=== PATIENT | female | born 1970 | race Two or more races ===

== ENCOUNTER → 2017-09-14 | Outpatient (CLI) | payer OTHER ==
--- NOTE | 2017-09-14 17:01 | RAD ---
DATE: 04/14/2017: EXAM: DIGITAL SCREEN BILAT W/CAD HISTORY: Routine screening COMPARISON: 06/30/2015 This study was interpreted with the benefit of Computerized Aided Detection (CAD). The breast parenchyma is heterogeneously dense, which could reduce sensitivity of mammography. Breast parenchyma level C. FINDINGS: No new or enlarging breast densities are evident. Benign type calcifications are present in both breasts. No suspicious microcalcifications have developed. IMPRESSION: Stable mammograms without evidence of malignancy. BI-RADS CATEGORY: 2 BENIGN FINDING(S) RECOMMENDED FOLLOW-UP: 12M 12 MONTH FOLLOW-UP PQRS compliance statement: Patient information was entered into a reminder system with a target due date for the next mammogram. Mammography is a sensitive method for finding small breast cancers, but it does not detect them all and is not a substitute for careful clinical examination. A negative mammogram does not negate a clinically suspicious finding and should not result in delay in biopsying a clinically suspicious abnormality. "Our facility is accredited by the [employer] Mammography [employer]."
== END | disposition home or self-care (01) ==
LOC: MAMMO 14:59
PROVIDERS: ATTEND Nurse Practitioner
DX: Z12.31 Encounter for screening mammogram for malignant neoplasm of breast (principal)
CPT/HCPCS: G0202; 77067

== ENCOUNTER → 2018-11-22 | Outpatient (CLI) | payer OTHER ==
--- NOTE | 2018-11-22 13:43 | RAD ---
MR#: [id number] Date of Study: 11/22/2018 Ordering Physician: BENJAMIN ROBLERO, Referring Physician: DONNA ADDISON Tech: APPROVED REPORT Test Type: Exercise Stress Nurse/Tech: PAOLA Mckeon Test Indications: abn. ekg Cardiac History: See Electronic Medical Record Medications: See Electronic Medical Record Medical History: See Electronic Medical Record Resting ECG: SR, RT UPWARD AXIS, NO ACUTE ISCHEMIC CHANGES Resting Heart Rate: 51 bpm Resting Blood Pressure: 103/58mmHg Pretest Chest Pain: None Nurse/Tech Notes EX. 8 MIN STOPPED DUE TO FATIGUE Consent: The procedure was explained to the patient in lay terms. Informed consent was witnessed. Lucas eout was entered into [employer]. History and Stress Test performed by SARA Roberts, ARRT (R) (N) Stress Symptoms Fatigue POST EXERCISE Reason for Termination: Reached target heart rate, Fatigue Target HR: Yes Max HR: 170 bpm 117% of Maximum Predicted HR: 145 bpm Exercise duration: 8 min:sec, 3 Stage Exercise capacity: 10METs Max Blood Pressure: 153/61mmHg Blood Pressure response to exercise: Normal blood pressure response during stress. Chest Pain: No. ST Change: Yes. RESOLVED W/RECOVERY Deviation: 1.5 mm INTERPRETATION Stress EKG Conclusion: Baseline EKG is within normal limits - Sinus rhythm. Stress EKG: Markedly abnormal with [address] segment depression in the inferior leads with corres ponding V3-V5 ST segment depression. There is also 1 to 1.5 mm HOENY in aVR suggestive of possible mult ivessel disease. Conclusion 1. Normal baseline EKG 2. Average exercise capacity with 10 Mets achieved. Test terminated due to fatigue. 3. Achieved 97% APMHR. Normal BP response. 4. Markedly abnormal EKG with inferior/posterior ST segment changes suggestive of ischemia in the RCA territory. Cannot rule out multivessel disease due to 1 mm HONEY in aVR. 5. Abreu Treadmill Score: (-2) suggestive of moderate risk. 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 Signed by : Naeem Isaacs, Electronically Approved : 11/22/2018 13:41:58
== END | disposition home or self-care (01) ==
LOC: NM 09:33
PROVIDERS: ATTEND Nurse Practitioner Family
DX: D64.9 Anemia, unspecified (principal); R42 Dizziness and giddiness; R94.31 Abnormal electrocardiogram [ECG] [EKG]; R53.83 Other fatigue; J30.1 Allergic rhinitis due to pollen; Z91.018 Allergy to other foods
CPT/HCPCS: 93017

== ENCOUNTER → 2021-01-13 | Outpatient (CLI) | payer OTHER ==
--- NOTE | 2021-01-14 17:03 | RAD ---
DATE: 01/13/2021 11:35 AM EXAM: DIGITAL SCREEN BILAT W/CAD HISTORY: Screening COMPARISON: 09/14/2017 Bilateral full field craniocaudal and mediolateral oblique images were obtained using digital technique. A right X CCL view was also obtained. This study was interpreted with the benefit of Computerized Aided Detection (CAD). FINDINGS: Breast Density: HETERO The breast parenchyma Is heterogeneously dense, which could reduce sensitivity of mammography. Breast parenchyma level C No suspicious masses, microcalcifications or architectural distortion is present to suggest malignancy in either breast. The visualized axillae are unremarkable. IMPRESSION: No mammographic evidence of malignancy. BI-RADS CATEGORY: 1 NEGATIVE RECOMMENDED FOLLOW-UP: 12M 12 MONTH FOLLOW-UP Annual screening mammography is recommended, unless clinically indicated sooner based on symptoms or change in physical exam. PQRS compliance statement: Patient information was entered into a reminder system with a target due date for the next mammogram. Mammography is a sensitive method for finding small breast cancers, but it does not detect them all and is not a substitute for careful clinical examination. A negative mammogram does not negate a clinically suspicious finding and should not result in delay in biopsying a clinically suspicious abnormality. "Our facility is accredited by the [employer] Mammography [employer]."
== END ==
LOC: MAMMO 11:24
PROVIDERS: ATTEND Nurse Practitioner Family
DX: Z12.31 Encounter for screening mammogram for malignant neoplasm of breast (principal)
CPT/HCPCS: 77067

== ENCOUNTER → 2021-07-27 | Outpatient (CLI) | payer OTHER ==
[2021-07-27 21:02] LABS: BASO % 1 % (0-3); EOS # 0.1 x10^3/uL (0.0-0.7); EOS % 3 % (0-3); HEMATOCRIT 38.7 % (36.0-47.0); HEMOGLOBIN 12.9 g/dL (12.0-15.5); LYMPH # 1.5 x10^3/uL (1.0-4.8); LYMPH % 32 % (24-48); MEAN CORPUSCULAR HEMOGLOBIN 32 pg (25-35); MEAN CORPUSCULAR HGB CONC 33 g/dL (31-37); MEAN CORPUSCULAR VOLUME 97 fL (79-100); MONO # 0.4 x10^3/uL (0.0-1.1); MONO % 8 % (0-9); NEUT # 2.7 x10^3uL (1.8-7.7); NEUT % 57 % (31-73); PLATELET COUNT 248 x10^3/uL (140-400); RED BLOOD COUNT 4.01 x10^6/uL (3.50-5.40); RED CELL DISTRIBUTION WIDTH 14.5 % (11.5-14.5); WHITE BLOOD COUNT 4.7 x10^3/uL (4.0-11.0)
[2021-07-27 21:17] LABS: ALBUMIN 3.8 g/dL (3.4-5.0); ALBUMIN/GLOBULIN RATIO 1.1 (1.0-1.7); CALCIUM 9.2 mg/dL (8.5-10.1); CREATININE 0.7 mg/dL (0.6-1.0); GFR 87.9; TOTAL BILIRUBIN 0.4 mg/dL (0.2-1.0); TOTAL PROTEIN 7.4 g/dL (6.4-8.2)
[2021-07-28 18:18] LABS: FREE T4 0.81 ng/dL (0.76-1.46); THYROID STIM HORMONE (TSH) 3.56 uIU/mL (0.358-3.740)
[2021-07-29 01:08] LABS: HEMOGLOBIN A1C 5.6 % (4.8-5.6)
== END ==
LOC: SPEC 20:23
PROVIDERS: ATTEND Nurse Practitioner Family
DX: R42 Dizziness and giddiness (principal); R00.1 Bradycardia, unspecified
CPT/HCPCS: 36415; 80053; 80061; 82306; 82607; 83036; 84439; 84443; 85025